=== PATIENT | male | born 1945 | race Caucasian/White ===

== ENCOUNTER → 2017-03-25 | Day surgery (SDC) | payer MEDICARE ==
[~2017-03-25] VITALS: Ht 165.1 cm; Wt 81.8 kg
[~2017-03-25] MED LIST: AMLO-110 PO; CYAN10005 PO; DICY10CA12 PO; FINA5TAB PO; LEVO25TA PO; MAGN250T3 PO; PRVC10 PO; SENNTAB23 PO; TAMS0.4C38 PO
[2017-03-25 08:13] VITALS: Ht 165.1 cm; Wt 81.8 kg
[2017-03-25 11:40] VITALS: BP 138/80; PULSE 51; TEMP 36.7; O2SAT 98
--- NOTE | 2017-03-25 13:07 | Procedure Note ---
Breath Hydrogen Test Interpretation Assessment: Normal Lactulose breath test, without any evidence of Small intestinal bacterial overgrowth. Plan: Followup with Dr. Little as scheduled If continued symptoms, followup in our office for further evaluation and recommendations.
== END | disposition home or self-care (01) ==
LOC: C.GI 07:33
PROVIDERS: ATTEND Internal Medicine
DX: R10.9 Unspecified abdominal pain (principal)